=== PATIENT | male | born 1985 | race Caucasian/White ===

== ENCOUNTER 2022-04-02 18:32 | Outpatient (CLI) | payer OTHER, SELFPAY | END 2022-04-02 18:33 | disposition home or self-care (01) | LOC: LKVREF 04-13 09:58 | PROVIDERS: Visit Provider Emergency Medicine | DX: N50.812 Left testicular pain (principal); N45.1 Epididymitis | CPT/HCPCS: 76870; 87086; 93976 ==

== ENCOUNTER 2022-04-21 18:22 | Emergency (ER) | payer OTHER, SELFPAY ==
[2022-04-21 19:27] VITALS: BP 136/89; PULSE 80; RESP 18; TEMP 36.7; O2SAT 97; BMI 25.4
--- NOTE | 2022-04-21 19:43 | ED_ITS ---
HPI - Wound/Laceration General Time Seen by Provider: 19:43 Date Seen: 04/21/22 Chief Complaint: Laceration/Wound Stated Complaint: Deep lac right foot Time Seen by Provider: 04/21/22 19:38 Source: patient and RN notes reviewed Mode of arrival: ambulatory Limitations: no limitations History of Present Illness HPI narrative: Patient was chopping wood and had an Axe go into his toe. He did bleed initially, did get bleeding under control. He does tell me that he really does not like needles. His tetanus was in 2012, we have discussed this and we will updated as he is near the end of his 10 year interval. Nothing else was injured. His foot is bandaged on arrival. On removal of the bandage, you can see an oblique laceration along the medial toe, nail bed is not affected. No active bleeding. Related Data Home Medications Medication Instructions Recorded Confirmed No Known Home Medications 04/21/22 04/21/22 Allergies Allergy/AdvReac Type Severity Reaction Status Date / Time No Known Allergies Allergy Verified 04/02/22 17:06 Review of Systems Narrative: As per HPI PFSH PFSH Surgical History (Updated 01/29/22 @ 13:44 by Anurag East) History of nasal septoplasty History of third molar tooth extraction Status post vasectomy Social History (Updated 01/29/22 @ 13:45 by Anurag East) Narrative: does not use illicit drugs former smoker occasional alcohol consumption Smoking Status: Former smoker Do you use any of these nicotine containing products: None Second hand tobacco smoke exposure: No How often do you have a drink containing alcohol: 2-3 times a week How many standard drinks containing alcohol do you have on a typical day: 1 or 2 How often do you have six or more drinks on one occasion: Never AUDIT-C Alcohol total score: 3 Non-prescribed substance use: denies use Exam Const: Vital Signs, click to edit/add: Vital Signs - 24 hr 04/21/22 19:27 Temperature 98.0 F Pulse Rate [Right Pulse Oximeter] 80 Respiratory Rate 18 Blood Pressure [Ri ght Upper Arm] 136/89 Pulse Oximetry 97 Oxygen Delivery Me thod Room Air Documenting provider has reviewed patient's vital signs: yes Common normals: no apparent distress, average body habitus, oriented x3, no limitations, healthy appearing and alert Extremity: Other: Patient has about a 1 cm obliquely situated laceration, wound edges about 2 mm apart, no active bleeding at this time. This is along the distal appendage medially of the 1st toe. He seems to have preserved neurovascular as well as range of motion. I did anesthetize the wound, drop 8 mL of 1% lidocaine with epinephrine, initial 3 mL was instilled around the wound. I was able to inspect deeper and it just is into the subcutaneous tissue, does not track deeper than that. Neuro: Common normals: oriented x3 Sensorium/orientation: alert Course Course Hospital Course: Will repair this toe. After inspection, do not feel it needs any imaging. It did go through his shoe which likely less than the impact. Patient is quite concerned about this wound. He states he is working 13 hour days, in boots in shoes and feet are often sweaty or dirty. He does not feel that he can adequately be allow this wound to heal if working. Given it is on a toe, will allow him this next week for wound healing and avoidance of infection. Vital Signs Vital signs: Initial Vital Signs Temperature 98.0 F 04/21/22 19:27 Temperature Source Temporal Artery Scan 04/21/22 19:27 Pulse Rate 80 04/21/22 19:27 Respiratory Rate 18 04/21/22 19:27 Blood Pressure 136/89 04/21/22 19:27 Blood Pressure Mean 104 04/21/22 19:27 Blood Pressure Position Sitting 04/21/22 19:27 Pulse Oximetry 97 04/21/22 19:27 Oxygen Delivery Method 04/21/22 19:27 Vital Signs Temperature 98.0 F 04/21/22 19:27 Pulse Rate 80 04/21/22 19:27 Respiratory Rate 18 04/21/22 19:27 Blood Pressure 136/89 04/21/22 19:27 Pulse Oximetry 97 04/21/22 19:27 Oxygen Delivery Method 04/21/22 19:27 Temperature 98.0 F 04/21/22 19:27 Pulse Rate 80 04/21/22 19:27 Respiratory Rate 18 04/21/22 19:27 Blood Pressure 136/89 04/21/22 19:27 Pulse Oximetry 97 04/21/22 19:27 Oxygen Delivery Method 04/21/22 19:27 Critical Care Time Critical Care Time Critical Care Time: No Discharge Plan Discharge Clinical Impression: Laceration of toe Qualifiers: Encounter type: initial encounter Toe: great toe Damage to nail status: without damage Foreign body presence: without foreign body Laterality: right Qualified Code(s): S91.111A - Laceration without foreign body of right great toe without damage to nail, initial encounter Condition: Stable Instructions: Care For Your Stitches (ED), Laceration (ED) Additional Instructions: May shower but should otherwise keep this laceration clean and dry. Use a bandage with bacitracin over the wound during the day or if out in public. Try to allow it to be open to air in the evening or during sleep if possible. Need to schedule a clinic followup in about 7-10 days to assess the wound for suture removal. If there are concerns of infection, please seek re-evaluation. Activity Level: Activity as Tolerated Prescriptions: No Action No Known Home Medications Follow Up/Referrals: Provider,Not a Local [Primary Care Provider] - Stand Alone Forms: [facility] Info Instructions Procedures Laceration Laceration 1: Pre procedure diagnosis: Toe laceration Post procedure diagnosis: Same Site marking: not applicable Verification/time out: correct patient, correct site and correct procedure Name of person performing procedure: Amy Spears Site: lower extremity (Right 1st toe) Side (If applicable): right Size (cm): 1 Description: linear Depth: simple, single layer Local Anesthetic: lidocaine 1% and with epi Amount of anesthesia used (mL): 8 (3 mL was used and seemed adequate for anesthesia) Pre-repair: wound explored and irrigated extensively (Done by Nursing Staff) Skin layer closed with: other (Ethilon) Size (cm): 4-0 Number of sutures: 3 Technique: simple, interrupted Conclusion: patient tolerated procedure
--- NOTE | 2022-04-21 19:55 | ED.NURSE ---
Wound on pt R big toe irrigated with 30 mLs sterile NS.
[2022-04-21] MEDS: TETANUS/DIPHTH/PERTUSSIS 0.5 ML SYRINGE IM (20:21)
--- NOTE | 2022-04-21 20:40 | ED.NURSE ---
Bacitracin applied to pt wound on R big toe and wound bandaged with large band-aid.
[2022-04-21 20:49] VITALS: BP 131/81; PULSE 72; O2SAT 97
== END 2022-04-21 20:51 | disposition home or self-care (01) ==
PROVIDERS: Emergency Provider Family Medicine
DX: S91.111A Laceration without foreign body of right great toe without damage to nail, initial encounter (principal); W27.0XXA Contact with workbench tool, initial encounter
CPT/HCPCS: 12001; 90471; 90715; 99283

== ENCOUNTER 2023-05-05 16:35 | Emergency (ER) | payer BC, SELFPAY ==
[2023-05-05 16:46] VITALS: BP 128/83; PULSE 73; RESP 18; TEMP 36.6; O2SAT 100; BMI 28.7
--- NOTE | 2023-05-05 17:01 | ED_ITS ---
HPI - Male Genitourinary General Time Seen by Provider: 17:01 Date Seen: 05/05/23 Chief complaint: Urogenital Problems, Male Stated complaint: testicular pain Time Seen by Provider: 05/05/23 17:01 Source: patient and RN notes reviewed Mode of arrival: ambulatory Limitations: no limitations History of Present Illness HPI Narrative: Dawson is a very pleasant 37-year-old male with history of epididymitis 2 years ago, increasing scrotal pain over the past 5 days who comes to the emergency room. Patient notes that 5 days ago he noticed some pain in his right testicle. Over the past 48 hours he has had increasing swelling of the entire scrotum. He was seen in urgent care yesterday and was told by the provider that he could have a testicular torsion or epididymitis. They were told that they should go to the emergency room as the ?cord few swollen. They decided to wait it out overnight but they do present today as patient's symptoms seem to be getting worse. He has not been experiencing any dysuria chills or fever. Feels like his scrotum is very tight and retracted. One month ago did have his office chair break but his trauma at that time seemed to be more his left elbow and not in the groin. Related Data Home Medications Medication Instructions Recorded Confirmed testosterone cypionate 200 mg/mL 200 mg IM QWEEK 12/18/22 05/05/23 intramuscular oil Previous Rx's Medication Instructions Recorded tretinoin 0.05 % topical cream 1 applic topical QHS 30 days #45 04/04/23 grams hydrocodone 5 mg-acetaminophen 325 1 tab PO Q4-6H PRN pain #10 tabs 05/05/23 mg tablet Allergies Allergy/AdvReac Type Severity Reaction Status Date / Time No Known Drug Allergies Allergy Verified 05/04/23 14:23 Review of Systems Status of ROS: Reports: 10 or more systems reviewed and unremarkable except as noted in History and below Narrative: Accompanied by significant other who is very loving and supportive. Const: Denies: fever, chills or fatigue Resp: Denies: cough GI: Denies: abdominal pain, nausea, vomiting or diarrhea : Reports: genital pain, testicular pain, testicular mass (Per urgent care provider yesterday) and scrotal swelling; Denies: painful urination, urinary frequency, urinary urgency or penile discharge Musculo: Denies: back pain Integ/Breast: Denies: rash Endo: Denies: fatigue [facility] Medical History (Updated 05/05/23 @ 21:32 by Laine Ghosh MD) Epididymitis ?N45.1 - Epididymitis (ICD-10) Gastroesophageal reflux disease ?K21.9 - Gastro-esophageal reflux disease without esophagitis (ICD-10) Allergic rhinitis (08/30/12) ?J30.9 - Allergic rhinitis, unspecified (ICD-10) Varicose veins of lower extremity ?I83.90 - Asymptomatic varicose veins of unspecified lower extremity (ICD-10) Surgical History (Updated 01/29/22 @ 13:44 by Anurag East) Status post vasectomy ?Z98.52 - Vasectomy status (ICD-10) History of third molar tooth extraction ?K08.409 - Partial loss of teeth, unspecified cause, unspecified class (ICD- 10) History of nasal septoplasty ?Z98.890 - Other specified postprocedural states (ICD-10) Social History (Updated 01/29/22 @ 13:45 by Anurag East) Narrative: does not use illicit drugs former smoker occasional alcohol consumption Smoking Status: Never smoker Do you use any of these nicotine containing products: None Second hand tobacco smoke exposure: No How often do you have a drink containing alcohol: 2-3 times a week How many standard drinks containing alcohol do you have on a typical day: 1 or 2 How often do you have six or more drinks on one occasion: Never AUDIT-C Alcohol total score: 3 Non-prescribed substance use: denies use Exam Narrative: Exam Narrative: Alert and oriented. Anxious. External ears eyes nose clear. Normal mentation normal speech. No respiratory difficulty. Abdomen soft. Examination of the scrotum shows normal color. She contracted scrotum. Positive cremasteric reflex bilaterally. The left testicle palpates normal without tenderness. Right testicle shows increased pain in the superior aspect of the testicle. I was not able to do a more thorough exam to detect any masses. No groin lymphadenopathy. Const: Vital Signs, click to edit/add: Vital Signs - 24 hr 05/05/23 16:46 Temperature 97.9 F Pulse Rate [Pulse Oximeter] 73 Respiratory Rate 18 Blood Pressure [Ri ght Upper Arm] 128/83 Pulse Oximetry 100 Oxygen Delivery Me thod Room Air Documenting provider has reviewed patient's vital signs: yes Course Course ED Course: At this time will obtain ultrasound of the scrotum. I recommend also was CBC, comprehensive, CRP urinalysis GC chlamydia although I would do not suspect underlying STI but using this to rule out this possibility. Reevaluation(s) Reevaluation #1: Patient informed that his white count and CRP are appropriate. Did also speak to him about a GC chlamydia as a natural test to order in a workup of this nature. Reevaluation #2: GC chlamydia negative. Urinalysis without evidence of UTI. CRP and white count within normal limits. Vital Signs Vital signs: Initial Vital Signs Temperature 97.9 F 05/05/23 16:46 Temperature Source Temporal Artery Scan 05/05/23 16:46 Pulse Rate 73 05/05/23 16:46 Respiratory Rate 18 05/05/23 16:46 Blood Pressure 128/83 05/05/23 16:46 Blood Pressure Mean 98 05/05/23 16:46 Blood Pressure Position Sitting 05/05/23 16:46 Pulse Oximetry 100 05/05/23 16:46 Oxygen Delivery Method Room Air 05/05/23 16:46 Vital Signs Temperature 97.9 F 05/05/23 16:46 Pulse Rate 73 05/05/23 16:46 Respiratory Rate 18 05/05/23 16:46 Blood Pressure 128/83 05/05/23 16:46 Pulse Oximetry 100 05/05/23 16:46 Oxygen Delivery Method Room Air 05/05/23 16:46 Temperature 97.9 F 05/05/23 16:46 Pulse Rate 73 05/05/23 16:46 Respiratory Rate 18 05/05/23 16:46 Blood Pressure 128/83 05/05/23 16:46 Pulse Oximetry 100 05/05/23 16:46 Oxygen Delivery Method Room Air 05/05/23 16:46 MDM - Male Genitourinary MDM Narrative Medical decision making narrative: 1. Thrombosed vein, right inguinal canal-at the pleasure of speaking to urologist Dr. Mendoza. He unfortunately was not able to view the films but we did go over the radiological report. At this time he suggests anti-inflammatory.-ibuprofen 800 mg every 8 hours as anti-inflammatory. Will also give a few tablets of [place] 5/325 1-2 tabs p.o. q.4-6 hours p.r.n. unfortunately, [employer] is not available for this medication tonight. We have dispense 2 tablets from our stock and remainder 10 tablets was sent to his pharmacy to be picked up as needed. Patient denies a history of addictions or drug use. I did check the FAN ENGINE ENGINEER as well.. Follow-up with primary clinic on May 09 for recheck. If your pain is worsening or ongoing you may need to see Urology. Return for fever, worsening symptoms and as needed. 2. Disposition-home at this time. Return as needed. Medical Records Attestation: I reviewed the patient's medical records. Lab Data Attestation: I reviewed the patient's lab results. Labs: Lab Results 05/05/23 05/05/23 Range/Units 17:25 18:20 WBC 4.58 (4.50-11.00) K/uL RBC 5.74 (4.30-5.90) m/uL Hgb 17.7 H (13.5-17.5) gm/dL Hct 50.4 (37.0-53.0) % MCV 88 (80-100) fL MCH 31 (26-34) pg MCHC 35 (32-36) gm/dL RDW Coeff of Olivia 11.3 L (11.5-15.5) % Plt Count 182 (140-440) K/uL Neut % (Auto) 45.6 (42.0-72.0) % Lymph % (Auto) 41.3 (20-44) % [place] % (Auto) 10.0 (0.0-11.0) % Eos % (Auto) 2.2 (0.0-7.0) % Baso % (Auto) 0.7 (0.0-3.0) % Neut # (Auto) 2.09 (1.7-7.0) K/uL Lymph # (Auto) 1.89 (0.90-2.90) K/uL [place] # (Auto) 0.50 (0.00-0.90) K/UL Eos # (Auto) 0.10 (0.00-0.50) K/uL Baso # (Auto) 0.03 (0.00-0.30) K/uL Abs Immat Gran (auto) 0.01 (0.00-0.30) K/uL Imm/Tot Granulo (auto) 0.2 % Sodium 140 (135-149) mmol/L Potassium 3.4 L (3.6-5.1) mmol/L Chloride 107 (96-114) mmol/L Carbon Dioxide 24 (20-32) mmol/L Anion Gap 9 (7-15) mEq/L BUN 17 (5-24) mg/dL Creatinine 1.1 (0.5-1.5) mg/dL Estimated Creat Clear 96.98 Estimated GFR 88 ml/min Glucose 96 (60-115) mg/dL Calcium 8.9 (8.4-10.6) mg/dL Total Bilirubin 0.6 (0.1-1.5) mg/dL AST 37 H (12-35) U/L ALT 32 (4-50) U/L Alkaline Phosphatase 57 (40-150) U/L C-Reactive Protein < 0.5 L (0.5-1.0) mg/dL Total Protein 8.0 (6.0-8.3) g/dL Albumin 4.6 (3.3-5.0) g/dL Urine Color Yellow (Yellow) Urine Appearance Clear (Clear) Urine pH 6.5 (5.0-8.5) Ur Specific Sidney 1.025 (1.000-1.030) Urine Protein Negative (Negative) Urine Glucose (UA) Negative (Negative) Urine Ketones Negative (Negative) Urine Blood Negative (Negative) Urine Nitrite Negative (Negative) Urine Bilirubin Negative (Negative) Urine Urobilinogen 0.2 (0.2-1.0) Ur Leukocyte Esterase Negative (Negative) Urine RBC 0-2 (0-2) Urine WBC 0-2 (0-5) Ur Squamous Epith Cells Few (None-Few) Urine Bacteria None (None) Urine Mucus Few A (None) C.trachomatis Ampl DNA NOT DETECTED (No Detected) N.gonorrhoeae Ampl DNA NOT DETECTED (No Detected) Imaging Data Scrotal ultrasound: Attestation: I have reviewed the pertinent imaging results. Radiologist's impression: Bother testicles are normal in size and echotexture. No masses. No suspicious calcifications. Arterial and venous color Doppler blood flow and spectral waveforms are present in both testicles. Epididymis: Unremarkable bilaterally. Normal blood flow. Other: Small right-sided hydrocele. A thrombosed occluded vein is present in the right inguinal canal. Scrotal wall is normal. Impression: Thrombosed, occluded vein present in the right inguinal canal. This could be responsible for the patient`s pain. No sign of acute inflammation or torsion. Remainder of exam is unremarkable. Discharge Plan Discharge Clinical Impression: Pain in scrotum, Thrombosis Patient Disposition: Home, Self-Care Condition: Improved Additional Instructions: Ice or heat for discomfort. 2. Recommend ibuprofen 800 mg every 8 hours as anti-inflammatory. Sometimes this is hard on your stomach and so if this is the case you may want to use omeprazole 1 tablet daily while you are on the ibuprofen. 3. For pain beyond ibuprofen you may use [place] also known as Vicodin or hydrocodone. Unfortunately this is not available in our vending machine as we thought. Therefore will issue 2 tablets it to be used overnight if needed. Further prescription sent to your pharmacy. 4. Follow-up on May 09. For ongoing or worsening pain you may need to see Urology. 5. Return to the ER as needed. Prescriptions: New hydrocodone-acetaminophen 5-325 mg tablet 1 tab PO Q4-6H PRN (Reason: pain) Qty: 10 0RF No Action testosterone cypionate 200 mg/mL oil 200 mg IM QWEEK tretinoin 0.05 % cream 1 applic topical QHS 30 Days Qty: 45 6RF Follow Up/Referrals: Lisbeth Lara, SIGN LANGUAGE TRANSLATOR, SPLICER MACHINE OPERATOR [Primary Care Provider] - Stand Alone Forms: [employer] Info Instructions
--- NOTE | 2023-05-05 17:16 | ED.NURSE ---
This nurse in along side MD Ghosh for testicular exam.
--- NOTE | 2023-05-05 17:17 | CRLHL7_ITS ---
For Patients: As a result of the Century Cures Act, medical imaging exams and procedure reports are released immediately into your electronic medical record. You may view this report before your referring provider. If you have questions, please contact your health care provider. Indication: Right testicular pain. Technique: Ultrasound of the scrotum and contents. Sonographic thompson-scale images were obtained with spectral and color Doppler waveform and spectral waveform analysis of the testicles. Comparison: None. Findings: Bother testicles are normal in size and echotexture. No masses. No suspicious calcifications. Arterial and venous color Doppler blood flow and spectral waveforms are present in both testicles. Epididymis: Unremarkable bilaterally. Normal blood flow. Other: Small right-sided hydrocele. A thrombosed occluded vein is present in the right inguinal canal. Scrotal wall is normal. Impression: Thrombosed, occluded vein present in the right inguinal canal. This could be responsible for the patient`s pain. No sign of acute inflammation or torsion. Remainder of exam is unremarkable. Dictated by Maurilio Freed MD @ 05/05/2023 8:39:22 PM (Electronically Signed)
[2023-05-05 17:37] LABS: Basophils Absolute Auto 0.03 K/uL (0.00-0.30); Basophils Percent Auto 0.7 % (0.0-3.0); Eosinophils Percent Auto 2.2 % (0.0-7.0); Hematocrit 50.4 % (37.0-53.0); Hemoglobin* 17.7 gm/dL (13.5-17.5); Immature Granulocytes Abs Auto 0.01 K/uL (0.00-0.30); Immature Granulocytes Pct Auto 0.2 %; Lymphocytes Absolute Auto 1.89 K/uL (0.90-2.90); Lymphocytes Percent Auto 41.3 % (20-44); Mean Corpuscular HGB Conc 35 gm/dL (32-36); Mean Corpuscular Hemoglobin 31 pg (26-34); Mean Corpuscular Volume 88 fL (80-100); Neutrophils Absolute Auto 2.09 K/uL (1.7-7.0); Neutrophils Percent Auto 45.6 % (42.0-72.0); Platelet Count* 182 K/uL (140-440); RDW Coefficient of Variation % 11.3 % (11.5-15.5); Red Blood Count 5.74 m/uL (4.30-5.90); White Blood Count* 4.58 K/uL (4.50-11.00)
[2023-05-05 17:38] LABS: Slide Review Reflex No
[2023-05-05 17:45] LABS: Albumin* 4.6 g/dL (3.3-5.0); Chloride* 107 mmol/L (96-114); Sodium* 140 mmol/L (135-149)
[2023-05-05 17:46] LABS: Potassium* 3.4 mmol/L (3.6-5.1)
[2023-05-05 17:47] LABS: Creatinine* 1.1 mg/dL (0.5-1.5); Est. Creatinine Clearance* 96.98; Estimated Glomerular Filt Rate 88 ml/min
[2023-05-05 17:48] LABS: Alanine Aminotransferase* 32 U/L (4-50); Alkaline Phosphatase* 57 U/L (40-150); Anion Gap 9 mEq/L (7-15); Aspartate Amino Transferase* 37 U/L (12-35); Bilirubin Total* 0.6 mg/dL (0.1-1.5); Carbon Dioxide* 24 mmol/L (20-32)
[2023-05-05 17:49] LABS: Blood Urea Nitrogen* 17 mg/dL (5-24); Calcium* 8.9 mg/dL (8.4-10.6); Glucose* 96 mg/dL (60-115)
[2023-05-05 17:51] LABS: C Reactive Protein* < 0.5 mg/dL (0.5-1.0)
[2023-05-05 18:33] LABS: Appearance Urine Clear (Clear); Bilirubin Urine Negative (Negative); Blood Urine Negative (Negative); Color Urine Yellow (Yellow); Glucose Urine Negative (Negative); Ketones Urine Negative (Negative); Leukocyte Esterase Urine Negative (Negative); Nitrite Urine Negative (Negative); Protein Urine Negative (Negative); Specific Gravity Urine 1.025 (1.000-1.030); Urobilinogen Urine 0.2 (0.2-1.0); pH Urine 6.5 (5.0-8.5)
[2023-05-05 18:46] LABS: Mucus Urine Few; RBC Urine 0-2 (0-2); Squamous Epithelial Cell Urine Few (None-Few); WBC Urine 0-2 (0-5)
[2023-05-05 20:11] LABS: Chlamydia DNA Amplified* NOT DETECTED (No Detected); GC DNA Amplified* NOT DETECTED (No Detected)
[2023-05-05 21:45] VITALS: BP 118/79; PULSE 81; RESP 18; O2SAT 98
[2023-05-05] MEDS: HYDROCODONE-ACETAMIN 5-325 MG 1 TAB 2 TAB PO (21:46)
== END 2023-05-05 21:48 | disposition home or self-care (01) ==
PROVIDERS: Emergency Provider Family Medicine; PCP Nurse Practitioner Family
DX: N50.82 Scrotal pain (principal); I82.90 Acute embolism and thrombosis of unspecified vein
CPT/HCPCS: 36415; 76870; 80053; 81001; 85025; 86140; 87491; 87591; 93976; 99284; A9270

== ENCOUNTER 2024-12-31 15:46 | Outpatient (CLI) | payer BC, SELFPAY ==
[2024-12-31 23:11] LABS: Chlamydia DNA Amplified* NOT DETECTED (No Detected); GC DNA Amplified* NOT DETECTED (No Detected)
--- OUTSIDE RECORDS SUMMARY | 2025-01-01 00:36 | XMS_ITS | Clinical Summary ---
Author Organization [facility] Address [address] [place] [address] Care Team Providers Care Stone Mill Operator Name Role Phone Elsewhere, Pcp Primary Care Provider Unavailabl e Source Comments Patient records contain information from all sites at [facility]. For routine questions regarding patient records, call [phone] during business hours, M-F 8:00 AM - 5:00 PM Central Time. Record requests for emergency care only can be directed to [phone] at any time.[facility] Allergies No known active allergies Medications No known medications Social History Tobacco Use Types Packs/Day Years Used Date Smoking Tobacco: Never Tobacco Cessation:Counseling Given: Not Answered Alcohol Use Standard Drinks/Week Comments Not Currently 0 (1 standard drink = 0.6 oz pur e alcohol) Nutrition Answer Date Recorded Nutrition: EVOO Fat Source Unknown 01/07 Nutrition: Servings of Fruits/Vegetables per Day Not on file 01/07/2023 Dental Answer Date Recorded Dental: Regular Dentist Unknown 01/08/20 Sex and Gender Information Value Date Recorded Sex Assigned at Not on file Legal Sex Male 1:51 PM CDT Gender Identity Not on file Sexual Orientation Not on file Last Filed Vital Signs Vital Sign Reading Time Taken Comments Blood Pressure 137/84 05/07/2023 7:24 PM CDT Pulse 62 05/07/2023 7:24 PM CDT Temperature 36.4 C (97.5 F) 05/07/2023 7:19 PM CDT Respiratory Rate 16 05/07/2023 6:50 PM CDT Oxygen Saturation 99% 05/07/2023 7:24 PM CDT Inhaled Oxygen Concentration - - Weight 93.1 kg (205 lb 4 oz) 05/07/2023 2:57 PM CDT Height - - Body Mass Index - - Plan of Treatment Health Maintenance Due Date Last Done Comments HIV Screening 1984 Hepatitis C Screening 1984 Lipid (Cholesterol) Screening 1984 Hepatitis B Vaccines (2 of 3 - 3-dose series) 04/09/1997 03/12/1997, 03/12/1997 COVID-19 Vaccine (3 - 2023-2 5 season) 2024 05/10/2021, 03/10/2021 Influenza Vaccine (#1) 2024 Depression Screening (Annual PHQ-2) 07/15/2024 DTaP,Tdap,and Td Vaccines (4 - Td or Tdap) 04/21/2032 04/21/2022, 11/05/2012, 03/12/1997 HPV Vaccines Aged Out No longer eligi ble based on patient's age to complete this topic IPV Vaccines Aged Out No longer eligi ble based on patient's age to complete this topic Pneumococcal vaccine (0-49 years) Aged Out No longer eligible b ased on patient's age to complete this topic Insurance [facility] Care Teams Stone Mill Operator Relationship Specialty Start Date End Date Elsewhere, Pcp PCP - General Internal Medicine 05/07/23
== END 2024-12-31 15:47 | disposition home or self-care (01) ==
PROVIDERS: PCP Nurse Practitioner Family; Visit Provider Nurse Practitioner Family
DX: R10.30 Lower abdominal pain, unspecified (principal); R79.89 Other specified abnormal findings of blood chemistry; Z11.3 Encounter for screening for infections with a predominantly sexual mode of transmission
CPT/HCPCS: 80053; 80061; 84403; 85025; 85651; 87086; 87491; 87591